=== PATIENT | female | born 1960 | race Caucasian/White ===

== ENCOUNTER 2018-06-26 18:08 | Emergency (ER) | payer MEDICARE, OTHER, MEDICAID ==
[2018-06-26] MEDS ORDERED: MUPIROCIN 2% 15 GM CR TOP (20:30)
[2018-06-26] MEDS: MUPIROCIN 2% 22 GM OINT TOP (20:43)
== END 2018-06-26 21:00 | disposition home or self-care (01) ==
LOC: FTE 18:08
DX: L08.9 Local infection of the skin and subcutaneous tissue, unspecified (principal); I10 Essential (primary) hypertension; E11.9 Type 2 diabetes mellitus without complications; E03.9 Hypothyroidism, unspecified
CPT/HCPCS: 99283